=== PATIENT | male | born 1970 | race Caucasian/White ===

== ENCOUNTER 2016-07-16 12:19 | Emergency (ER) | payer OTHER ==
[~2016-07-16] VITALS: Ht 177.8 cm; Wt 67.5 kg
[~2016-07-16 12:19] MED LIST: ATV/1 PO; CITA20TA9 PO; CYM/30 PO; DULO60CA44 PO; TRAZ1TAB52 PO
[2016-07-16 12:24] VITALS: TEMP 36.6; Ht 177.8 cm; Wt 67.5 kg
[2016-07-16 13:32] LABS: BASO % 0.4 %; BASO ABS # 0.03 K/uL (0-0.2); COMPLETE YES; EOS % 0.7 %; IG% 0.1 %; LYMPH ABS # 1.48 K/uL (1.2-3.4); MEAN CELL VOLUME 88.8 fL (80-100); MEAN CORPUSCULAR HEMOGLOBIN 31.7 pg (25-34); MEAN CORPUSCULAR HGB CONC 35.7 g/dl (32-36); MEAN PLATELET VOLUME 9.4 fL (7.4-10.4); MONO % 5.7 %; NEUT % 72.1 %; PLATELET COUNT 219 K/uL (130-400); RED BLOOD COUNT 5.52 M/uL (4.7-6.1); WHITE BLOOD COUNT 7.04 K/uL (4.8-10.8)
[2016-07-16 13:47] LABS: URINE APPEARANCE CLEAR (CLEAR); URINE BILIRUBIN NEG (NEG); URINE COLOR YELLOW; URINE NITRITE NEG (NEG); URINE SPECIFIC GRAVITY 1.011 (1.000-1.030); UROBILINOGEN NEG (NEG)
[2016-07-16 13:50] LABS: CALCIUM 9.2 mg/dl (8.5-10.1); CREATININE 0.65 mg/dl (0.60-1.40); POTASSIUM 4.4 mmol/L (3.5-5.1)
--- NOTE | 2016-07-16 13:54 | DIAGNOSTIC IMAGING REPORT ---
CHEST ONE VIEW PORTABLE CLINICAL HISTORY: Mood Disorder mental status change COMPARISON STUDY: 03/12/2016 FINDINGS: Mild emphysematous change. Chronic granulomatous change. No focal infiltrate. Diaphragms are smooth. IMPRESSION: No acute process. Electronically signed by: Singh Sandoval M.D. 07/16/2016 1:53 PM Dictated Date/Time: 07/16/2016 1:53 PM
[2016-07-16 13:56] LABS: MANUAL MICROSCOPIC REQUIRED? NO; REVIEW REQ? NO
[2016-07-16 14:00] LABS: BENZODIAZEPINE, URINE NEG (NEG); COCAINE,URINE NEG (NEG); PHENCYCLIDINE, URINE NEG (NEG)
[2016-07-16 14:01] LABS: ALB/GLOB RATIO 1.2 (0.9-2); THYROID STIMULATING HORMONE 0.579 uIu/ml (0.300-4.500)
[2016-07-16] MEDS ORDERED: LORAZEPAM 1 MG TAB SL STA (16:52)
[2016-07-16 17:56] VITALS: BP 155/98; PULSE 81; O2SAT 97
--- NOTE | 2016-07-16 18:44 | EMERGENCY ROOM VISIT NOTE ---
History Report prepared by Linda: Felicita Freedman Under the Supervision of: Dr. Jassi Grimm D.O. First contact with patient: 12:51 Chief Complaint: MENTAL HEALTH EVALUATION Stated Complaint: PTSD History of Present Illness The patient is a 45 year old male who presents to the Emergency Room with complaints of worsening depression over the past weekend. The patient states that recently he has been feeling increasingly worn out and increasingly fatigued. He states that he has had a decrease in appetite. The patient states that this weekend he attempted to numb himself emotionally and physically with marijuana and alcohol. He states that he only typically uses alcohol 1-2 times per month, and states that he cannot remember the last time he used marijuana other than this weekend. The patient states that he does not want to be in that situation and decided to come to the emergency department for further evaluation and treatment. He denies any current homicidal ideation or auditory or visual hallucinations. The patient admits to thoughts of self- harm. The patient states that throughout his entire adult life he has suffered from chronic back pain. He states that in March he had his fourth back surgery, and states that since then he has not had any back pain. The patient states that shortly after that, he developed abdominal pain that has been unchanged for the past three months. He states that he has a blocked artery that has not been opened yet. The patient states that he has been following with vascular surgery for his pain. Per records, the patient has disease of the celiac artery and has an appointment to follow up with Vascular Surgery in August. The patient states that he has a history of bipolar and depression, stating that he has been compliant with his medications. The patient denies having a psychiatrist, noting that he only follows with his PCP for his psychiatric needs. He states that he has been evaluated in the past for his depression and states that he has come here in the past for help. Pt denies headache, change in vision, fevers, chest pain, shortness of breath, nausea, vomiting, diarrhea, pain with urination, and melena. Source of History: patient Onset: the past weekend Position: other (global) Quality: other (depression) Timing: worsening Note: Associated Symptoms: Thoughts of self harm. Review of Systems See HPI for pertinent positives & negatives. A total of 10 systems reviewed and were otherwise negative. Past Medical & Surgical Medical Problems: (1) Anxiety State Nos (2) Chronic Pain Syndrome (3) Depressive Disorder Nec (4) Lumbago (5) Lumbar back pain (6) Lumbar stenosis with neurogenic claudication Family History Diabetes mellitus FH: cancer FH: gallbladder disease FH: heart disease Hypertension Kidney disease Kidney stones Social History Smoking Status: Current Some Day Smoker Marital Status: in relationship Housing Status: lives with significant other Occupation Status: disabled Current/Historical Medications Scheduled Citalopram Hydrobromide (Celexa), 20 MG PO QAM Duloxetine HCl (Cymbalta), 30 MG PO QAM Duloxetine Hcl (Cymbalta), 60 MG PO QAM Trazodone Hcl (Desyrel), 150 MG PO HS Scheduled PRN Lorazepam (Ativan), 1 MG PO TID PRN for PRN Allergies Coded Allergies: Codeine (Verified Allergy, Unknown, UNKNOWN REACTION, 07/16/16) Prednisone (Verified Adverse Reaction, Intermediate, PERSONALITY CHANGES, 07/16/16) GETS "MEAN AND CRAZY" Hydrocodone (Verified Adverse Reaction, Unknown, UNKNOWN REACTION, 07/16/16) Meperidine (Verified Adverse Reaction, Unknown, CONSTIPATION, 07/16/16) Propoxyphene (Verified Adverse Reaction, Unknown, DYSPEPSIA, 07/16/16) Tromethamine (Verified Adverse Reaction, Unknown, CHANGE OF MENTAL STATUS , VOMITING, 07/16/16) Physical Exam Vital Signs Date Time Temp Pulse Resp B/P Pulse Ox O2 Delivery O2 Flow Rate FiO2 07/16/16 17:56 81 18 155/98 97 Room Air 07/16/16 16:32 107 20 171/114 97 07/16/16 14:15 92 19 143/103 97 Room Air 07/16/16 12:24 36.6 102 19 153/98 98 Room Air Physical Exam GENERAL: Sitting up in bed, disheveled, alert, well nourished, no distress, non- toxic EYE EXAM: normal conjunctiva. OROPHARYNX: no exudate, no erythema, lips, buccal mucosa, and tongue normal and mucous membranes are moist NECK: supple, no nuchal rigidity, no adenopathy, non-tender LUNGS: Clear to auscultation. Normal chest wall mechanics HEART: no murmurs, S1 normal and S2 normal ABDOMEN: abdomen soft, non-tender, normo-active bowel sounds, no masses, no rebound or guarding. BACK: Back is symmetrical on inspection and there is no deformity, no midline tenderness, no CVA tenderness. SKIN: no rashes and no bruising UPPER EXTREMITIES: upper extremities are grossly normal. LOWER EXTREMITIES: No pitting edema. NEURO EXAM: Normal sensorium, cranial nerves II-XII grossly intact, normal speech, no gross weakness of arms, no gross weakness of legs. PSYCH: Denies suicidal or homicidal ideation, denies auditory or visual hallucinations, admits to depression. Medical Decision & Procedures ER Provider Diagnostic Interpretation: Xray results per the radiologist and my interpretation. Other results have been interpreted by the radiologist and reviewed by me. CHEST ONE VIEW PORTABLE CLINICAL HISTORY: Mood Disorder mental status change COMPARISON STUDY: 03/12/2016 FINDINGS: Mild emphysematous change. Chronic granulomatous change. No focal infiltrate. Diaphragms are smooth. IMPRESSION: No acute process. Electronically signed by: Singh Sandoval M.D. 07/16/2016 1:53 PM Dictated Date/Time: 07/16/2016 1:53 PM Laboratory Results 07/16/16 13:20 Red Blood Count 5.52, Mean Corpuscular Volume 88.8, Mean Corpuscular Hemoglobin 31.7, Mean Corpuscular Hemoglobin Concent 35.7, Mean Platelet Volume 9.4, Neutrophils (%) (Auto) 72.1, Lymphocytes (%) (Auto) 21.0, Monocytes (%) (Auto) 5.7, Eosinophils (%) (Auto) 0.7, Basophils (%) (Auto) 0.4, Neutrophils # (Auto) 5.07, Lymphocytes # (Auto) 1.48, Monocytes # (Auto) 0.40, Eosinophils # (Auto) 0.05, Basophils # (Auto) 0.03 07/16/16 13:20 Test 07/16/16 13:12 07/16/16 13:17 07/16/16 13:20 Urine Color YELLOW Urine Appearance CLEAR (CLEAR) Urine pH 6.0 (4.5-7.5) Urine Specific [place] 1.011 (1.000-1.030) Urine Protein NEG (NEG) Urine Glucose (UA) NEG (NEG) Urine Ketones NEG (NEG) Urine Occult Blood NEG (NEG) Urine Nitrite NEG (NEG) Urine Bilirubin NEG (NEG) Urine Urobilinogen NEG (NEG) Urine Leukocyte Esterase NEG (NEG) Urine Opiates Screen NEG (NEG) Urine Methadone, Qualitative NEG (NEG) Urine Barbiturates NEG (NEG) Urine Phencyclidine (PCP) Level NEG (NEG) Ur Amphetamine/Methamphetamine NEG (NEG) MDMA (Ecstasy) Screen NEG (NEG) Urine Benzodiazepines Screen NEG (NEG) Urine Cocaine Metabolite NEG (NEG) Urine Marijuana (THC) POS (NEG) Bedside Glucose 80 mg/dl (70-99) White Blood Count 7.04 K/uL (4.8-10.8) Red Blood Count 5.52 M/uL (4.7-6.1) Hemoglobin 17.5 g/dL (14.0-18.0) Hematocrit 49.0 % (42-52) Mean Corpuscular Volume 88.8 fL (80-100) Mean Corpuscular Hemoglobin 31.7 pg (25-34) Mean Corpuscular Hemoglobin Concent 35.7 g/dl (32-36) Platelet Count 219 K/uL (130-400) Mean Platelet Volume 9.4 fL (7.4-10.4) Neutrophils (%) (Auto) 72.1 % Lymphocytes (%) (Auto) 21.0 % Monocytes (%) (Auto) 5.7 % Eosinophils (%) (Auto) 0.7 % Basophils (%) (Auto) 0.4 % Neutrophils # (Auto) 5.07 K/uL (1.4-6.5) Lymphocytes # (Auto) 1.48 K/uL (1.2-3.4) Monocytes # (Auto) 0.40 K/uL (0.11-0.59) Eosinophils # (Auto) 0.05 K/uL (0-0.5) Basophils # (Auto) 0.03 K/uL (0-0.2) RDW Standard Deviation 50.4 fL (36.4-46.3) RDW Coefficient of Variation 15.4 % (11.5-14.5) Immature Granulocyte % (Auto) 0.1 % Immature Granulocyte # (Auto) 0.01 K/uL (0.00-0.02) Anion Gap 11.0 mmol/L (3-11) Est Creatinine Clear Calc Drug Dose 134.1 ml/min Estimated GFR () 134.3 Estimated GFR (Non- 115.9 BUN/Creatinine Ratio 8.0 (10-20) Calcium Level 9.2 mg/dl (8.5-10.1) Total Bilirubin 0.7 mg/dl (0.2-1) Direct Bilirubin 0.2 mg/dl (0-0.2) Aspartate Amino Transf (AST/SGOT) 24 U/L (15-37) Alanine Aminotransferase (ALT/SGPT) 25 U/L (12-78) Alkaline Phosphatase 100 U/L (45-117) Total Protein 7.1 gm/dl (6.4-8.2) Albumin 3.9 gm/dl (3.4-5.0) Globulin 3.2 gm/dl (2.5-4.0) Albumin/Globulin Ratio 1.2 (0.9-2) Thyroid Stimulating Hormone (TSH) 0.579 uIu/ml (0.300-4.500) Ethyl Alcohol mg/dL 23.0 mg/dl (0-3) Laboratory results per my review. Medications Administered Medications (Trade) Dose Ordered Sig/[place] Route Start Time Stop Time Status Last Admin Dose Admin Lorazepam (Ativan Tab) 1 mg NOW STAT SL 07/16/16 16:52 07/16/16 16:53 DC 07/16/16 17:03 1 MG ED Course ED COURSE: Vital signs were reviewed and showed tachycardic The patients medical record was reviewed The above diagnostic studies were performed and reviewed. ED treatments and interventions as stated above. 1255: The patient was evaluated in room A6. A complete history and physical examination was performed. 1416: Per the psych family service caseworker, the patient wants inpatient treatment. 1652: The patient states that if he does not get inpatient treatment, he will go home and overdose on any medication that he can find. Ordered Ativan Tab 1 mg SL. 1656: The patient has been accepted to the [facility] for further mental health evaluation. The patient is in agreement with the plan. Medical Decision Differential diagnosis: Etiologies such as mood disorder, infection, hypoglycemia, electrolyte abnormalities, cardiac sources, intracerebral event, toxicologic, neurologic, as well as others were entertained. Patient is a 45-year-old male who presents the ER with past medical history of chronic back pain and abdominal pain for depression. He notices been extremely depressed recently. His been taking care of himself. He does admit to abdominal pain which is present for the past 3-4 months and has been unchanged. He is currently having is followed by vascular surgery and [facility] He notes absolutely no new pain or changes pain. Labs were obtained and show no significant leukocytosis or anemia. BMP all with LFTs, bilirubin and TSH are normal. Urine tox is negative. Alcohol was 23. Patient doesn't meet to drinking last night. Marijuana was positive which she also admits to. UA was negative. Throughout his stay in the ER he notes that he gets home he would overdose on all the medications that he could take to normal self and he would not care if he woke up. At this time but search continued and is eventually accepted. He did note that his anxiety started to increase and is given Ativan. Along with an increase in his anxiety his abdomen started to hurt and resolved with the Ativan. His belly was completely benign. There is no signs peritonitis. Patient was transferred to [facility] on a 201. Impression Primary Impression: Mood disorder Additional Impressions: Suicidal ideation Chronic abdominal pain Scribe Attestation The scribe's documentation has been prepared under my direction and personally reviewed by me in its entirety. I confirm that the note above accurately reflects all work, treatment, procedures, and medical decision making performed by me. Departure Information Dispostion Mental Health Acute Care Referrals Som Cabral PA-C (PCP) Patient Instructions [facility] Problem Qualifiers
[2017-01-11] MEDS ORDERED: LURA40TA PO (13:31)
[2017-01-11] MEDS ORDERED: LAMO200T38 PO (13:31)
[2017-01-11] MEDS ORDERED: ESCI5TAB PO (13:31)
[2017-01-11] MEDS ORDERED: NAPR1TAB9 PO (13:32)
[2017-01-11] MEDS ORDERED: DIPH1TAB PO (13:32)
[2017-01-23] MEDS ORDERED: RXC5 PO (14:46)
== END 2016-07-16 18:14 ==
LOC: C.EDB 12:22 → C.EDA 18:14
DX: F32.9 Major depressive disorder, single episode, unspecified (principal); M54.5 Low back pain; G89.29 Other chronic pain; F41.9 Anxiety disorder, unspecified; Z83.3 Family history of diabetes mellitus; Z82.49 Family history of ischemic heart disease and other diseases of the circulatory system; F17.210 Nicotine dependence, cigarettes, uncomplicated; Z79.899 Other long term (current) drug therapy; R10.9 Unspecified abdominal pain; F12.10 Cannabis abuse, uncomplicated; R45.851 Suicidal ideations

== ENCOUNTER 2016-10-15 20:14 | Emergency (ER) | payer OTHER ==
[~2016-10-15] VITALS: Ht 180.3 cm; Wt 70.1 kg
[2016-10-15 20:17] VITALS: TEMP 36.6; Ht 180.3 cm; Wt 70.1 kg
[2016-10-15] MEDS ORDERED: SODIUM CHLORIDE 0.9% 1000ML 500 ML IV ONE (20:50)
[2016-10-15 20:59] LABS: MEAN CELL VOLUME 92.1 fL (80-100); MEAN CORPUSCULAR HEMOGLOBIN 32.9 pg (25-34); MEAN CORPUSCULAR HGB CONC 35.7 g/dl (32-36); MEAN PLATELET VOLUME 10.2 fL (7.4-10.4); PLATELET COUNT 193 K/uL (130-400); RED BLOOD COUNT 5.54 M/uL (4.7-6.1); WHITE BLOOD COUNT 10.73 K/uL (4.8-10.8)
[2016-10-15 21:08] LABS: URINE APPEARANCE CLEAR (CLEAR); URINE BILIRUBIN NEG (NEG); URINE COLOR YELLOW; URINE EPITHELIAL CELL AUTO 0-5 /lpf (0-5); URINE NITRITE NEG (NEG); URINE PH 5.5 (4.5-7.5); URINE SPECIFIC GRAVITY 1.019 (1.000-1.030); UROBILINOGEN NEG (NEG); ZZUR CULT IF INDIC CLEAN CATCH NO
[2016-10-15 21:13] LABS: MANUAL MICROSCOPIC REQUIRED? NO; REVIEW REQ? NO
[2016-10-15 21:16] LABS: BUN/CREATININE RATIO 16.1 (10-20); CALCIUM 9.3 mg/dl (8.5-10.1); CREATININE 0.78 mg/dl (0.60-1.40); POTASSIUM 3.8 mmol/L (3.5-5.1)
[2016-10-15] MEDS ORDERED: LURA1TAB3 PO (21:25)
[2016-10-15] MEDS ORDERED: PRAZ1CAP28 PO (21:27)
[2016-10-15] MEDS ORDERED: FENT25DI10 TD (21:29)
[2016-10-15] MEDS ORDERED: KETOROLAC TROMETHAMINE 30 MG/ML VIAL IV STA (21:31)
[2016-10-15] MEDS ORDERED: ACETAMINOPHEN 500 MG TAB PO STA (21:39)
[2016-10-15 21:43] LABS: ALKALINE PHOSPHATASE 88 U/L (45-117); ALT/SGPT 22 U/L (12-78); AST/SGOT 14 U/L (15-37)
--- NOTE | 2016-10-15 22:17 | DIAGNOSTIC IMAGING REPORT ---
KUB CLINICAL HISTORY: left flank pain pain COMPARISON STUDY: No previous studies for comparison. FINDINGS: The soft tissues, psoas shadows, renal outlines and intestinal gas pattern appear normal. There is no evidence for bowel obstruction. No abnormal abdominal calcifications are seen. IMPRESSION: Normal study. Postoperative changes consistent with laminectomy and fusion at the L4-L5 level lumbar spine. Electronically signed by: Singh Sandoval M.D. 10/15/2016 10:15 PM Dictated Date/Time: 10/15/2016 10:15 PM
--- NOTE | 2016-10-15 22:18 | DIAGNOSTIC IMAGING REPORT ---
LEFT SHOULDER MIN 2 VIEWS ROUTINE CLINICAL HISTORY: left shoulder pain pain COMPARISON: None. DISCUSSION: The bones and joint spaces appear intact. There is no evidence of fracture, dislocation or bony disease. There is no evidence for soft tissue swelling. IMPRESSION: Negative study. Electronically signed by: Singh Sandoval M.D. 10/15/2016 10:16 PM Dictated Date/Time: 10/15/2016 10:16 PM
[2016-10-16 00:02] VITALS: BP 126/74; PULSE 74; O2SAT 98
--- NOTE | 2016-10-16 01:40 | EMERGENCY ROOM VISIT NOTE ---
History Report prepared by Linda: Chase Westfall Under the Supervision of: Dr. Darryl Decker M.D. First contact with patient: 21:22 Chief Complaint: FLANK PAIN Stated Complaint: LEFT NECK AND SHOULDER PAIN,L KIDNEY PAIN FROM STO History of Present Illness The patient is a 45 year old male who presents to the Emergency Room with complaints of constant left flank and left shoulder pain. He states that he was diagnosed with kidney stones by CT six days ago at [facility]. He states that he was also diagnosed with a pulled muscle in his left groin as well. The patient has a history of a right rotator cuff tear, and states that his current shoulder pain feels similar. He also complains of left neck pain and "increased urinary pressure". He notes that he has a history of frequent kidney stones, but has never seen a urologist. His flank pain began last week. His shoulder and neck pain began yesterday, and feels that he likely injured his shoulder and neck while moving heavy music equipment. Pt denies trauma, LOC , headache, fevers, chills, malaise, night sweats, weight loss, history of malignancy, chest pain, breathing difficulties, abdominal pain, saddle paraesthesias, bowel or bladder dysfunction, numbness, weakness, or other complaints. He took Aleve for his symptoms 5.5 hours ago. Source of History: patient Onset: Last week Position: shoulder (left), other (left flank) Timing: constant Associated Symptoms: + neck pain, + urinary symptoms (increased pressure), No fevers, No chest pain, No SOB, No abdominal pain Review of Systems See HPI for pertinent positives and negatives. A total of ten systems were reviewed and were otherwise negative. Past Medical & Surgical Medical Problems: (1) Anxiety State Nos (2) Chronic Pain Syndrome (3) Depressive Disorder Nec (4) Lumbago (5) Lumbar back pain (6) Lumbar stenosis with neurogenic claudication Family History Diabetes mellitus FH: cancer FH: gallbladder disease FH: heart disease Hypertension Kidney disease Kidney stones Social History Smoking Status: Current Every Day Smoker Marital Status: in relationship Housing Status: lives with significant other Occupation Status: disabled Current/Historical Medications Scheduled Fentanyl (Duragesic), 25 MCG TD Q72H Lurasidone Hcl (Latuda), 60 MG PO DAILY Prazosin Hcl (Prazosin), 1 MG PO HS Trazodone Hcl (Desyrel), 150 MG PO HS Scheduled PRN Lorazepam (Ativan), 1 MG PO TID PRN for PRN Allergies Coded Allergies: Codeine (Verified Allergy, Unknown, UNKNOWN REACTION, 07/16/16) Prednisone (Verified Adverse Reaction, Intermediate, PERSONALITY CHANGES, 07/16/16) GETS "MEAN AND CRAZY" Hydrocodone (Verified Adverse Reaction, Unknown, UNKNOWN REACTION, 07/16/16) Meperidine (Verified Adverse Reaction, Unknown, CONSTIPATION, 07/16/16) Propoxyphene (Verified Adverse Reaction, Unknown, DYSPEPSIA, 07/16/16) Tromethamine (Verified Adverse Reaction, Unknown, CHANGE OF MENTAL STATUS , VOMITING, 07/16/16) Physical Exam Vital Signs Date Time Temp Pulse Resp B/P (MAP) Pulse Ox O2 Delivery O2 Flow Rate FiO2 10/16/16 00:02 74 18 126/74 98 10/15/16 21:52 78 18 140/79 98 Room Air 10/15/16 20:17 36.6 95 18 130/84 94 Room Air Physical Exam GENERAL: Awake, alert, well-appearing, in no distress HENT: Normocephalic, atraumatic. Oropharynx unremarkable. EYES: Normal conjunctiva. Sclera non-icteric. NECK: Supple. No nuchal rigidity. FROM. No JVD. RESPIRATORY: Clear to auscultation. CARDIAC: Regular rate, normal rhythm. Extremities warm and well perfused. Pulses equal. ABDOMEN: Soft, non-distended. No tenderness to palpation. No rebound or guarding. No masses. RECTAL: Deferred. MUSCULOSKELETAL: Chest examination reveals no tenderness. The back is symmetrical on inspection without obvious abnormality. Mild left flank and left CVA tenderness to palpation. No joint edema. Mild pain with left shoulder ROM. Normal external and internal rotation. LOWER EXTREMITIES: Calves are equal size bilaterally and non-tender. No edema. No discoloration. NEURO: Normal sensorium. No sensory or motor deficits noted. SKIN: No rash or jaundice noted. Medical Decision & Procedures ER Provider Diagnostic Interpretation: X-ray: Per my interpretation, radiologist review. LEFT SHOULDER MIN 2 VIEWS ROUTINE DISCUSSION: The bones and joint spaces appear intact. There is no evidence of fracture, dislocation or bony disease. There is no evidence for soft tissue swelling. IMPRESSION: Negative study. Electronically signed by: Singh Sandoval M.D. KUB FINDINGS: The soft tissues, psoas shadows, renal outlines and intestinal gas pattern appear normal. There is no evidence for bowel obstruction. No abnormal abdominal calcifications are seen. IMPRESSION: Normal study. Postoperative changes consistent with laminectomy and fusion at the L4-L5 level lumbar spine. Electronically signed by: Singh Sandoval M.D. Laboratory Results 10/15/16 20:50 10/15/16 20:50 Test 10/15/16 20:35 10/15/16 20:50 Urine Color YELLOW Urine Appearance CLEAR (CLEAR) Urine pH 5.5 (4.5-7.5) Urine Specific [place]in 1.019 (1.000-1.030) Urine Protein NEG (NEG) Urine Glucose (UA) NEG (NEG) Urine Ketones 1+ (NEG) Urine Occult Blood NEG (NEG) Urine Nitrite NEG (NEG) Urine Bilirubin NEG (NEG) Urine Urobilinogen NEG (NEG) Urine Leukocyte Esterase NEG (NEG) Urine WBC (Auto) 0 /hpf (0-5) Urine RBC (Auto) 0-4 /hpf (0-4) Urine Hyaline Casts (Auto) 0 /lpf (0-5) Urine Epithelial Cells (Auto) 0-5 /lpf (0-5) Urine Bacteria (Auto) NEG (NEG) Red Blood Count 5.54 M/uL (4.7-6.1) Mean Corpuscular Volume 92.1 fL (80-100) Mean Corpuscular Hemoglobin 32.9 pg (25-34) Mean Corpuscular Hemoglobin Concent 35.7 g/dl (32-36) RDW Standard Deviation 46.4 fL (36.4-46.3) RDW Coefficient of Variation 13.7 % (11.5-14.5) Mean Platelet Volume 10.2 fL (7.4-10.4) Anion Gap 9.0 mmol/L (3-11) Est Creatinine Clear Calc Drug Dose 116.1 ml/min Estimated GFR () 124.6 Estimated GFR (Non- 107.5 BUN/Creatinine Ratio 16.1 (10-20) Calcium Level 9.3 mg/dl (8.5-10.1) Total Bilirubin 0.5 mg/dl (0.2-1) Direct Bilirubin < 0.1 mg/dl (0-0.2) Aspartate Amino Transf (AST/SGOT) 14 U/L (15-37) Alanine Aminotransferase (ALT/SGPT) 22 U/L (12-78) Alkaline Phosphatase 88 U/L (45-117) Total Protein 7.5 gm/dl (6.4-8.2) Albumin 4.1 gm/dl (3.4-5.0) Lipase 82 U/L (73-393) Laboratory results reviewed by me Medications Administered Medications (Trade) Dose Ordered Sig/Almita Route Start Time Stop Time Status Last Admin Dose Admin Sodium Chloride 500 ml @ 999 mls/hr Q31M ONCE IV 10/15/16 20:50 10/15/16 21:20 DC 10/15/16 21:49 999 MLS/HR Acetaminophen (Tylenol Tab) 1,000 mg NOW STAT PO 10/15/16 21:39 10/15/16 21:40 DC 10/15/16 21:49 1,000 MG ED Course 2049: Ordered Sodium Chloride 500 ml @ 999 mls/hr IV. 2130: The patient was evaluated in room A2. A complete history and physical exam was performed. 2138: Ordered Tylenol Tab 1000 mg PO. 2140: I obtained and reviewed records from the patient's most recent visit to the [facility]. 5: I reevaluated the patient. Discussed results and discharge instructions: he verbalized understanding and agreement. The patient is ready for discharge. Medical Decision Blood pressure screening: Patient was found to have an elevated blood pressure and was referred to their primary doctor for recheck and further treatment. Medication Reconciliation: I attest that I have personally reviewed the patient' s current medication list Triage Nursing notes reviewed. The patient's presentation and history were concerning for flank pain and shoulder pain. Etiologies such as musculoskeletal, exacerbation of chronic pain, renal colic, appendicitis, diverticulitis, mesenteric ischemia, aortic pathology, infections , inflammatory bowel disease, PUD, biliary pathology, UTI, as well as others were entertained. The patient was evaluated. He does not have a fever. He does not have any peritoneal findings on examination. His shoulder examination revealed no limitation in range of motion or significant impairment in function. There is no dislocation. Left upper extremity is neurovascular intact. Patient has no hernia. His CBC, chemistry panel, urinalysis were unremarkable. X-ray imaging of the left shoulder and abdomen did not reveal any acute findings. Records were obtained from the [facility]. The patient was diagnosed with a left inguinal strain. CT imaging revealed only punctate stones in the upper pole of the left kidney. The patient is resting comfortably. He states he cannot take Toradol because it affects his bipolar. The patient was given Tylenol. He is on a narcotic restriction here. He states he is on a pain management contract with his primary physician. The state database was reviewed and the patient has had numerous prescriptions in the last 12 months. He did have surgery in the middle of that time. Because of this additional prescriptions were not written. I discussed conservative management with the patient. He has kidney stones and has never seen a urologist. He was referred. The patient has shoulder issues and was referred to [facility] who evaluated the patient for his spine. The patient also was referred back to his primary physician for close management. He's had numerous CT scans in the past and just had one recently. He has no blood in his urine and is doing quite well. KUB does not reveal any abnormalities to suggest ureterolithiasis. Additional treatment at this point was deferred to the outpatient setting. I gave my usual and customary discussion regarding this issue. By the evaluation outlined above other emergent etiologies such as those listed in the differential, as well as others, were deemed relatively unlikely. The patient was educated about the findings as listed above. All questions were answered and the patient was pleased with the treatment. Return instructions were outlined and the patient was discharged in stable condition. [place] Drug Monitoring Program Search Results: patient reviewed within database, see additional documentation Drug Monitoring Findings: Patient had 36 prescriptions within the past 12 months. Impression Primary Impression: Left shoulder strain Additional Impression: Left flank pain Scribe Attestation The scribe's documentation has been prepared under my direction and personally reviewed by me in its entirety. I confirm that the note above accurately reflects all work, treatment, procedures, and medical decision making performed by me. Departure Information Dispostion Home / Self-Care Referrals Som Cabral PA-C (PCP) Forms HOME CARE DOCUMENTATION FORM, IMPORTANT VISIT INFORMATION Patient Instructions My [facility] Additional Instructions Ibuprofen(Motrin, Advil) may be used for fever or pain. Use 600mg every six hours as needed. Take with food. Avoid using more than 2400mg in a 24 hour period. Do not use 2400mg per day for more than three consecutive days without physician direction. Prolonged inappropriate use can lead to stomach upset or ulcers. (AND/OR) Acetaminophen(Tylenol) may be used for fever or pain. Use 1000mg every six hours as needed. Avoid using more than 4000mg in a 24 hour period. Ice compresses for 20 minutes at a time four times daily for 2-3 days. Rest and elevate your injury. Return to the ER immediately for any abdominal pain, bloody stool, fever, numbness, tingling, severe pain, extreme swelling in the extremity or as needed. Call [facility], [phone], tomorrow to arrange follow up for your injury. Follow-up with your primary care physician in 2 to 3 days for a recheck of your current condition. Follow-up with Dr. Hampton of urology for your kidney stones. Problem Qualifiers
[2017-01-11] MEDS ORDERED: ESCI5TAB PO (13:31)
[2017-01-11] MEDS ORDERED: LURA40TA PO (13:31)
[2017-01-11] MEDS ORDERED: LAMO200T38 PO (13:31)
[2017-01-11] MEDS ORDERED: NAPR1TAB9 PO (13:32)
[2017-01-11] MEDS ORDERED: DIPH1TAB87 PO (13:32)
[2017-01-23] MEDS ORDERED: RXC5 PO (14:46)
== END 2016-10-16 00:06 | disposition home or self-care (01) ==
LOC: C.EDB 20:15 → C.EDA 10-16 00:06
DX: S43.402A Unspecified sprain of left shoulder joint, initial encounter (principal); X58.XXXA Exposure to other specified factors, initial encounter; R10.30 Lower abdominal pain, unspecified; Z87.442 Personal history of urinary calculi; F41.9 Anxiety disorder, unspecified; G89.29 Other chronic pain; F32.9 Major depressive disorder, single episode, unspecified; Z83.3 Family history of diabetes mellitus; Z80.9 Family history of malignant neoplasm, unspecified; Z82.49 Family history of ischemic heart disease and other diseases of the circulatory system; Z84.1 Family history of disorders of kidney and ureter; Z79.899 Other long term (current) drug therapy

== ENCOUNTER 2017-01-23 07:42 | Inpatient (IN) | payer OTHER ==
[2017-01-11 13:34] VITALS: BMI 21.0
--- NOTE | 2017-01-11 14:07 | PAT Medication Instructions ---
Service Date Jan 11, 2017. Current Home Medication List Diphenhydramine Hcl (Benadryl Allergy), 25 MG PO prn Escitalopram Oxalate (Lexapro), 15 MG PO QAM Lamotrigine (Lamictal), 200 MG PO HS Lorazepam (Ativan), 1 MG PO TID PRN for PRN Lurasidone Hcl (Latuda), 40 MG PO QAM Naproxen (Aleve), 440 MG PO PRN Prazosin Hcl (Prazosin), 1 MG PO HS Trazodone Hcl (Desyrel), 200 MG PO HS Medication Instructions For Your Scheduled Surgery - Check with surgeon for instructions: Naproxen (Aleve), 440 MG PO PRN - Hold the following medications the morning of surgery: Diphenhydramine Hcl (Benadryl Allergy), 25 MG PO prn seasonal allergies - Take the following medications the morning of surgery with a sip of water: Lorazepam (Ativan), 1 MG PO TID PRN for PRN Escitalopram Oxalate (Lexapro), 15 MG PO QAM Lurasidone Hcl (Latuda), 40 MG PO QAM - Take the following medications as scheduled the night before surgery: Diphenhydramine Hcl (Benadryl Allergy), 25 MG PO prn seasonal allergies (if needed) Lamotrigine (Lamictal), 200 MG PO HS Lorazepam (Ativan), 1 MG PO TID PRN for PRN (if needed) Prazosin Hcl (Prazosin), 1 MG PO HS Trazodone Hcl (Desyrel), 200 MG PO HS If you have any questions please call us at [phone] or [phone] or [phone]
[2017-01-11 14:29] LABS: URINE APPEARANCE CLEAR (CLEAR); URINE BILIRUBIN NEG (NEG); URINE COLOR YELLOW; URINE NITRITE NEG (NEG); URINE SPECIFIC GRAVITY 1.008 (1.000-1.030); UROBILINOGEN NEG (NEG); ZZUR CULT IF INDIC CLEAN CATCH NO
[2017-01-11 14:29] LABS: BASO % 0.4 %; BASO ABS # 0.03 K/uL (0-0.2); COMPLETE YES; HEMATOCRIT 51.1 % (42-52); IG% 0.3 %; LYMPH % 21.7 %; LYMPH ABS # 1.66 K/uL (1.2-3.4); MEAN CELL VOLUME 93.6 fL (80-100); MEAN CORPUSCULAR HEMOGLOBIN 32.8 pg (25-34); MEAN PLATELET VOLUME 9.6 fL (7.4-10.4); MONO % 6.8 %; NEUT % 69.8 %; PLATELET COUNT 227 K/uL (130-400); RED BLOOD COUNT 5.46 M/uL (4.7-6.1); WHITE BLOOD COUNT 7.66 K/uL (4.8-10.8)
[2017-01-11 14:34] LABS: MANUAL MICROSCOPIC REQUIRED? NO; REVIEW REQ? NO
[2017-01-11 14:53] LABS: BUN/CREATININE RATIO 8.4 (10-20); CALCIUM 9.8 mg/dl (8.5-10.1); CREATININE 0.93 mg/dl (0.60-1.40); POTASSIUM 4.5 mmol/L (3.5-5.1)
[~2017-01-23] VITALS: Ht 180.3 cm; Wt 69.9 kg
[2017-01-23] VITALS (16 sets, daily range): BP systolic 120–151; BP diastolic 78–98; PULSE 81–96; TEMP 36.3–36.9; O2SAT 95–100; Ht 180.3 cm; Wt 69.9 kg
[~2017-01-23 07:42] MED LIST changes: +CEFAZOLIN 1000MG/55 ML D5W IV SCH; -CITA20TA9 PO; -CYM/30 PO; +DIPH1TAB PO; -DULO60CA44 PO; +ESCI5TAB PO; +LACTATED RINGER'S 1000ML 1,000 ML IV SCH; +LAMO200T38 PO; +LURA40TA PO; +NAPR1TAB9 PO; +PRAZ1CAP28 PO
[2017-01-23] MEDS ORDERED: OXYC-106 PO (08:06)
[2017-01-23] MEDS ORDERED: MIDAZOLAM HCL 1 MG/ML 2ML VIAL ONE (08:40)
[2017-01-23] MEDS ORDERED: FENTANYL CITRATE INJ 50 MCG/1 ML 2 ML VIAL ONE ×5 (08:40→11:02)
--- NOTE | 2017-01-23 08:48 | History & Physical Bridge Note ---
H&P Re-Evaluation Bridge Note: I have examined the patient, reviewed the History & Physical and in the interval since the performance of the History & Physical I have noted the following changes of clinical significance: No changes noted
--- NOTE | 2017-01-23 08:49 | History and Physical ---
History & Physical Date Jan 23, 2017. Chief Complaint Neck and arm pain History of Present Illness The patient is a 46 year old male with complaints of Past Medical/Surgical History Medical Problems: (1) Anxiety State Nos (2) Chronic Pain Syndrome (3) Depressive Disorder Nec (4) Lumbago (5) Lumbar back pain (6) Lumbar stenosis with neurogenic claudication Additional History Hepatic Disease: No Endocrine Disorder: No Kidney Disease: No Hypertension: No Heart Disease: No Bleeding Tendencies: No Infectious Diseases: No Allergies Coded Allergies: Codeine (Verified Allergy, Unknown, UNKNOWN REACTION, 01/23/17) Prednisone (Verified Adverse Reaction, Intermediate, PERSONALITY CHANGES, 01/23/17) GETS "MEAN AND CRAZY" Meperidine (Verified Adverse Reaction, Unknown, CONSTIPATION, 01/23/17) Propoxyphene (Verified Adverse Reaction, Unknown, DYSPEPSIA, 01/23/17) Tromethamine (Verified Adverse Reaction, Unknown, CHANGE OF MENTAL STATUS , VOMITING, 01/23/17) Home Medications Scheduled Diphenhydramine Hcl (Benadryl Allergy), 25 MG PO prn Escitalopram Oxalate (Lexapro), 15 MG PO QAM Lamotrigine (Lamictal), 200 MG PO HS Lurasidone Hcl (Latuda), 40 MG PO QAM Naproxen (Aleve), 440 MG PO PRN Prazosin Hcl (Prazosin), 1 MG PO HS Trazodone Hcl (Desyrel), 200 MG PO HS Scheduled PRN Lorazepam (Ativan), 1 MG PO TID PRN for PRN Oxycodone/Acetaminophen 10MG/325MG (Percocet 10MG/325MG), 1 TAB PO for Pain Physical Examination Skin: warm/dry, no rash Eyes: normal inspection, EOMI, sclerae normal ENT: normal ENT inspection, pharynx normal Head: normocephalic, atraumatic Neck: supple, no adenopathy, trachea midline Respiratory/Chest: lungs clear, normal breath sounds, no respiratory distress Cardiovascular: regular rate, rhythm, no edema, no murmur Abdomen / GI: normal bowel sounds, non tender Back: normal inspection Extremities: normal inspection, normal range of motion Neurologic/Psych: no motor/sensory deficits, alert, normal reflexes, oriented x 3 Diagnosis Cervical spinal stenosis with radiculopathy Plan of Treatment ACDF C5 6 C6 7
[2017-01-23] MEDS ORDERED: BACITRACIN 50000 UNIT VIAL ONE (08:57)
[2017-01-23] MEDS ORDERED: HYDROmorphone INJ 2 MG/ML SYR/VIAL ONE ×3 (09:49→11:36)
[2017-01-23] MEDS ORDERED: ATROPINE SULFATE 0.4 MG/ML 1 ML VIAL ONE ×2 (10:19→11:07)
[2017-01-23] MEDS ORDERED: LIDOCAINE HCL 2% 2 ML VIAL (20MG/ML) ONE (11:06)
[2017-01-23] MEDS ORDERED: FLOSEAL HEMOSTATIC MATRIX 5ML TOP ONE (11:06)
[2017-01-23] MEDS ORDERED: ROCURONIUM BROMIDE 10 MG/ML 5 ML VIAL IV ONE (11:06)
[2017-01-23] MEDS ORDERED: PROPOFOL IV EMULSION 10 MG/ML 20 ML VIAL IV ONE (11:06)
[2017-01-23] MEDS ORDERED: DEXAMETHASONE SOD INJ 4 MG/ML VIAL ONE (11:06)
[2017-01-23] MEDS ORDERED: ONDANSETRON INJ 2 MG/ML 2 ML VIAL ONE (11:06)
[2017-01-23] MEDS ORDERED: PHENYLEPHRINE 100MCG/ML 5ML SYR ONE (11:07)
[2017-01-23] MEDS ORDERED: NEOSTIGMINE METHYLSULFATE 1 MG/ML 10ML VIAL ONE (11:07)
[2017-01-23] MEDS ORDERED: ESMOLOL HCL 10 MG/ML 10 ML VIAL ONE (11:07)
[2017-01-23] MEDS ORDERED: GLYCOPYRROLATE INJ 0.2 MG/ML VIAL ONE (11:07)
[2017-01-23] MEDS ORDERED: MAGNESIUM HYDROXIDE SUSP 30 ML UDC PO PRN (11:15)
[2017-01-23] MEDS ORDERED: DO NOT ADMINISTER PNEUMOCOCCAL VACCINE PRN ×2 (11:15)
[2017-01-23] MEDS ORDERED: NALOXONE HCL 0.4 MG/1 ML VIAL/CARP IV PRN (11:15)
[2017-01-23] MEDS ORDERED: LORAZEPAM INJ 0.5 MG in SYRINGE 0.75 ML IV PRN (11:15)
[2017-01-23] MEDS ORDERED: ACETAMINOPHEN IV 1,000 MG in EMPTY BAG 0 ML IV PRN (11:15)
[2017-01-23] MEDS ORDERED: DEXAMETHASONE INJ 8 MG in SYRINGE 0 ML IV PRN (11:15)
[2017-01-23] MEDS ORDERED: DiphenhydrAMINE HCL 50 MG/ML VIAL IV PRN (11:15)
[2017-01-23] MEDS ORDERED: LORAZEPAM 0.5 MG TAB PO PRN (11:15)
[2017-01-23] MEDS ORDERED: RACEPINEPHRINE 2.25% NEBU SOLN 0.5 ML VIAL INH PRN (11:15)
[2017-01-23] MEDS ORDERED: DO NOT ADMINISTER FLU VACCINE PRN ×3 (11:15)
[2017-01-23] MEDS ORDERED: ONDANSETRON INJ 2 MG/ML 2 ML VIAL IV PRN ×2 (11:15→11:30)
--- NOTE | 2017-01-23 11:15 | [facility] Operative Report ---
Operative Report Operative Date Jan 23, 2017. Pre-Operative Diagnosis Cervical spinal stenosis with radiculopathy Post-Operative Diagnosis Cervical spinal stenosis with radiculopathy Procedure(s) Performed #1 anterior cervical discectomy bilateral foraminotomies C5 6 C6 7. #2 anterior cervical arthrodesis C5 6 C6 7. #3 cortical R graft filled with DBM 9 mm in height C5 6 C6 7. #4 sosa plate and screws across C5 [address] Migue Jones Warp Splitter Surgeon(s) SANTIAGO Garrison Estimated Blood Loss 10ml Findings Cervical spinal stenosis Specimens none per surgeon Description of Procedure Patient was met with preoperatively case discussed all questions are dressed. After informed consent he was taken to the operative suite and intubated and placed in a supine position the Mason table head in [place] headholder. This point the anterior cervical spine was prepped draped nostril fashion. With the assistance of fluoroscopy identified the C6 vertebral body and a transverse incision was placed on the right anterior aspect of the cervical spine overlying this region. Sharp dissection with the assistance of bipolar cautery performed onto an exposing the C5 6 C6 7 levels. Self-retaining retractors placed. Verified position with fluoroscopy. Complete discectomy C5 6 was performed out to the uncovertebral joints bilaterally. [place] distractor were utilized to sisters and her visualization. I did remove all posterior annular fibers and longitudinal ligament performed bilateral foraminotomies. Endplates were then burred to subcortical bleeding bone and a 9 mm cortical R graft filled with DBM tapped in position. I then proceeded to C6 7. Again a complete discectomy performed out to the uncovertebral joints bilaterally [place] distracting pins utilized to assist in visualization. I did remove all posterior annular fibers and longitudinal ligament performed bilateral foraminotomies. Endplates were then burred to subcortical bleeding bone and a 9 mm cortical R graft filled with DBM tapped in position. Distracting apparatus was removed. All anterior Ross writes burred to smooth cortical surface. A sosa plate and screws applied with the assistance of fluoroscopy. Incision was in copious irrigated explored to ensure there is no damage to surrounding structures remaining bleeding. 10 round EBONY drain inserted. Was then closed with 2 Vicryl in the fascia and 4 Monocryl for final skin closure. Steri-Strips sterile dressing was placed. Patient we can take PACU stable condition. Please note Rosalind Licea was present at the entire procedure involved in patient positioning complex portions of the procedure and final skin closure. I attest to the content of the Intraoperative Record and any orders documented therein. Any exceptions are noted below.
[2017-01-23] MEDS ORDERED: ATROPINE SULFATE 0.1 MG/ML 5ML SYR IV PRN (11:30)
[2017-01-23] MEDS ORDERED: HYDROmorphone INJ 2 MG/ML SYR/VIAL IV PRN (11:30)
[2017-01-23] MEDS ORDERED: EpHEDrine SULFATE INJ 50 MG/ML AMP IV PRN (11:30)
[2017-01-23] MEDS ORDERED: PHENYLEPHRINE 100MCG/ML 5ML SYR IV PRN (11:30)
--- NOTE | 2017-01-23 11:44 | DIAGNOSTIC IMAGING REPORT ---
INTRAOPERATIVE CERVICAL SPINE 3 VIEWS CLINICAL HISTORY: ACDF C5-7 COMPARISON STUDY: No previous studies for comparison. FINDINGS: 13 seconds of fluoroscopic time was utilized. 2 intraoperative fluoroscopic spot images are provided for interpretation. There are postsurgical changes of anterior discectomies with interbody bone plugs and anterior plate fixation at the C5-6 and C6-7 levels. IMPRESSION: Postsurgical changes of anterior cervical discectomy and fusion at the C5-C7 levels. Electronically signed by: Karel Kaufman M.D. 01/23/2017 11:43 AM Dictated Date/Time: 01/23/2017 11:42 AM
[2017-01-23] MEDS ORDERED: HYDROmorphone INJ 1 MG/ML SYR ONE (12:00)
--- NOTE | 2017-01-23 13:03 | Anesthesiology Progress Note ---
Anesthesia Post Op Note Date & Time Jan 23, 2017 at 13:03 Vital Signs Pain Intensity: 4 Vital Signs Past 12 Hours Date Time Temp Pulse Resp B/P (MAP) Pulse Ox O2 Delivery O2 Flow Rate FiO2 01/23/17 12:35 96 16 126/95 98 Nasal Cannula 4 01/23/17 12:20 96 16 143/89 98 Nasal Cannula 4 01/23/17 12:10 36.6 98 16 137/96 98 Nasal Cannula 4 01/23/17 12:00 92 16 140/94 97 Nasal Cannula 4 01/23/17 11:50 88 16 131/91 95 Nasal Cannula 4 01/23/17 11:40 92 15 137/89 97 Nasal Cannula 4 01/23/17 11:30 95 14 149/88 97 Oxymask 8 01/23/17 11:21 36.6 95 16 131/85 98 Oxymask 8 01/23/17 08:08 36.9 82 18 144/98 97 Room Air Notes Mental Status: alert / awake / arousable, participated in evaluation Pt Amnestic to Procedure: Yes Nausea / Vomiting: adequately controlled Pain: adequately controlled Airway Patency, RR, SpO2: stable & adequate BP & HR: stable & adequate Hydration State: stable & adequate Anesthetic Complications: no major complications apparent
[2017-01-23] MEDS: OXYCODONE HCL IR 5 MG TAB (IMMEDIATE RELEASE) PO PRN ×2 (13:41→18:12)
[2017-01-23] MEDS: LACTATED RINGER'S 1000ML 1,000 ML IV SCH (13:42)
[2017-01-23] MEDS ORDERED: SCOPOLAMINE 1.5 MG TDSY TD SCH (13:45)
[2017-01-23] MEDS: DEXAMETHASONE INJ 6 MG in SYRINGE 0 ML IV SCH ×2 (14:18→22:34)
[2017-01-23] MEDS ORDERED: RXC5 PO (14:46)
--- NOTE | 2017-01-23 14:47 | Discharge Instructions ---
Discharge Instructions Date of Service Jan 23, 2017. Admission Reason for Admission: Spinal Stenosis Discharge Discharge Diagnosis / Problem: cervical stenosis Discharge Goals Goal(s): Decrease discomfort Activity Recommendations Activity Limitations: per Instructions/Follow-up section . Instructions / Follow-Up Instructions / Follow-Up ACTIVITY RECOMMENDATIONS: SELF CARE INSTRUCTIONS AFTER CERVICAL FUSIONS 1. No smoking. Smoking drastically decreases the chance of a solid fusion. 2. No bending, lifting more than 5 pounds, or twisting (roll like a log when turning in bed). 3. You may shower 3 days after surgery. Thoroughly dry wound. Do not soak in the tub. 4. Cervical collar: Must be worn at all times including sleeping. You may remove the brace only to bath, eat and if you are sitting in a recliner. 5. Please walk as much as you can for exercise. Gradually increase the distance that you walk as your endurance increases. SPECIAL CARE INSTRUCTIONS: VERY IMPORTANT TO READ AND REVIEW A. Do not take any anti-inflammatory medications (i.e. Indocin, Advil, Aspirin, Naprosyn, Aleve, Motrin, etc.) as these may inhibit the chance of a solid fusion. Tylenol is okay to take. B. Your surgical incision has been closed with a cosmetic suture under the skin that will dissolve in about 6 weeks. In 14 days, you can use a pair of clean scissors and cut the suture that is left outside of the skin at the ends of your incision. C. Complications are uncommon, but please contact us if you have any signs or symptoms of: 1. wound infection (fever higher than 102.5 degrees F, redness, separation of wound, drainage, or increasing pain from the incision) 2. blood clots in legs (pain, swelling, redness and warmth in legs) 3. urinary tract infection (fever higher than 102.5 degrees, burning upon urination or increased frequency of urination) 4. nerve problems (inability to walk on your toes or heels, numbness, loss of bowel or bladder control) 5. any other symptoms that concern you. D. Please call the office at if you have any concerns or questions about your operation or recovery. MANAGING PAIN AFTER SPINAL SURGERY 1. Narcotic medication is intended for short-term use and will be provided for surgical pain. Surgical pain usually lasts for a period of 4-6 weeks. Narcotic medication includes Percocet, Vicodin, Darvocet, Tylenol #3 or Lortab. 2. Longer-term pain is more appropriately treated with non-narcotic medication such as Tylenol ES. 3. Muscle spasm is not appropriately treated with narcotics. Muscle relaxers such as Soma, Flexeril or Skelaxin can be used along with Tylenol ES. 4. Remember that we all live with some "aches and pains". This is not unusual or uncommon after an injury or as we get older. 5. We will provide appropriate medication within the normal guidelines of their prescribed use. We will also be very cautious and aware of potential abuse and extended duration of patients' medication needs. 6. Please allow 2-3 days to process refills. Prescriptions will not be mailed but must be picked up at the office. FOLLOW UP VISIT: Keep your scheduled follow-up appointment. Any questions, please call the office at . Current Hospital Diet Patient's current hospital diet: Clear Liquid Diet Discharge Diet Recommended Diet: Regular Diet Procedures Procedures Performed: #1 anterior cervical discectomy bilateral foraminotomies C5 6 C6 7. #2 anterior cervical arthrodesis C5 6 C6 7. #3 cortical R graft filled with DBM 9 mm in height C5 6 C6 7. #4 sosa plate and screws across C5 6 C6 7. Pending Studies Studies pending at discharge: no Medical Emergencies . Who to Call and When: Medical Emergencies: If at any time you feel your situation is an emergency, please call 911 immediately. . Non-Emergent Contact Non-Emergency issues call your: Primary Care Provider . "Provider Documentation" section prepared by Migue Jones. . VTE Core Measure Inpt VTE Proph given/why not?: Yumiko Burgos, SCD's
[2017-01-23] MEDS: CEFAZOLIN IV 1,000 MG in DEXTROSE 5% 50ML 50 ML IV SCH (15:32)
[2017-01-23] MEDS: HYDROmorphone INJ 0.5 MG/0.5 ML SYR IV PRN ×3 (15:34→22:35)
[2017-01-23] MEDS: CHECK SCOPOLAMINE PATCH PLACEMENT SCH (15:34)
[2017-01-23] MEDS ORDERED: PRAZOSIN HCL 1 MG CAP PO SCH (21:00)
[2017-01-23] MEDS ORDERED: TRAZODONE HCL 100 MG TAB PO SCH (21:00)
[2017-01-23] MEDS: DOCUSATE SODIUM 100 MG CAP PO SCH (21:17)
[2017-01-24] VITALS (13 sets, daily range): BP systolic 109–129; BP diastolic 74–89; PULSE 61–90; TEMP 36.2–36.8; O2SAT 92–98
[2017-01-24] MEDS: CEFAZOLIN IV 1,000 MG in DEXTROSE 5% 50ML 50 ML IV SCH ×2 (00:32→08:56)
[2017-01-24] MEDS: OXYCODONE HCL IR 5 MG TAB (IMMEDIATE RELEASE) PO PRN ×3 (00:32→10:59)
[2017-01-24] MEDS: CHECK SCOPOLAMINE PATCH PLACEMENT SCH ×2 (00:33→08:00)
[2017-01-24] MEDS: LACTATED RINGER'S 1000ML 1,000 ML IV SCH (01:07)
[2017-01-24] MEDS: HYDROmorphone INJ 0.5 MG/0.5 ML SYR IV PRN ×3 (02:08→14:17)
[2017-01-24] MEDS: DEXAMETHASONE INJ 6 MG in SYRINGE 0 ML IV SCH (05:54)
[2017-01-24] MEDS ORDERED: LURASIDONE HCL 40 MG TAB PO SCH (08:30)
[2017-01-24] MEDS: DOCUSATE SODIUM 100 MG CAP PO SCH (08:52)
[2017-01-24] MEDS ORDERED: ESCITALOPRAM OXALATE 10 MG TAB PO SCH (09:00)
--- NOTE | 2017-01-24 10:36 | Discharge Summary ---
Orthopedic Discharge Summary Admission Date/Reason Jan 23, 2017 at 09:00 Spinal Stenosis. Discharge Date/Disposition Jan 24, 2017 Home Diagnosis Principal Diagnosis: Cervical spinal stenosis Admission Physical Exam As per Admitting History & Physical. Hospital Course Patient underwent anterior cervical discectomy and fusion tolerated this well as taken to the orthopedic floor postoperatively. Postop day 1 he was swallowing without difficulty no hoarseness arm symptoms markedly improved. EBONY drain decreased appropriately. Subsequently discharged home. Discharge orders and instructions found on the chart for further review. Discharge Instructions Please refer to the electronic Patient Visit Report (Discharge Instructions) for additional information.
--- NOTE | 2017-01-24 11:02 | Anesthesiology Progress Note ---
Anesthesia Post Op Note Date & Time Jan 24, 2017 at 11:01 Vital Signs Pain Intensity: 4.0 Vital Signs Past 12 Hours Date Time Temp Pulse Resp B/P (MAP) Pulse Ox O2 Delivery O2 Flow Rate FiO2 01/24/17 10:45 36.7 87 16 125/80 93 Room Air 01/24/17 08:45 36.2 71 18 129/89 94 Room Air 01/24/17 07:43 75 14 95 Nasal Cannula 2.0 01/24/17 07:35 96 Room Air 01/24/17 07:20 36.4 76 16 119/77 (91) 93 Room Air 01/24/17 06:45 36.7 90 16 128/86 96 Nasal Cannula 1.0 Humidified Oxygen 01/24/17 04:45 36.7 81 16 122/83 98 Nasal Cannula 2.0 Humidified Oxygen 01/24/17 03:39 61 14 96 Nasal Cannula 2.0 01/24/17 02:45 36.4 87 16 126/80 97 Nasal Cannula 3.0 Humidified Oxygen 01/24/17 00:45 Nasal Cannula 3.0 01/24/17 00:45 36.3 86 17 126/89 97 Nasal Cannula 3.0 Humidified Oxygen 01/23/17 23:59 81 16 97 Nasal Cannula 2.0 Notes Mental Status: alert / awake / arousable, participated in evaluation Pt Amnestic to Procedure: Yes Nausea / Vomiting: adequately controlled Pain: adequately controlled Airway Patency, RR, SpO2: stable & adequate BP & HR: stable & adequate Hydration State: stable & adequate Anesthetic Complications: no major complications apparent
[2017-01-25] MEDS ORDERED: BISACODYL 5 MG TABEC PO PRN (06:00)
[2017-01-25] MEDS ORDERED: BISACODYL 10 MG SUPP PR PRN (06:00)
[2017-01-26] MEDS ORDERED: POLYETHYLENE (MIRALAX) 17 GM PACK PO SCH (09:00)
== END 2017-01-24 14:58 | disposition home or self-care (01) | DRG 473 ==
LOC: C.ACU 07:42 → C.3E 09:00 → ENRESERV 12:31
PROVIDERS: ADMIT Orthopaedic Surgery Orthopaedic Surgery of the Spine; ATTEND Orthopaedic Surgery Orthopaedic Surgery of the Spine
PROC: 0RG20K0 Fusion of 2 or more Cervical Vertebral Joints with Nonautologous Tissue Substitute, Anterior Approach, Anterior Column, Open Approach (ICD-10-PCS; principal; 2017-01-23 09:35)
PROC: 0RT30ZZ Resection of Cervical Vertebral Disc, Open Approach (ICD-10-PCS; principal; 2017-01-23 09:35)
DX: M48.02 Spinal stenosis, cervical region (principal); M54.12 Radiculopathy, cervical region; F32.9 Major depressive disorder, single episode, unspecified; F41.9 Anxiety disorder, unspecified; Z79.899 Other long term (current) drug therapy